=== PATIENT | female | born 1955 | race Caucasian/White ===

== ENCOUNTER 2023-09-16 08:41 | Outpatient (RCR) | payer OTHER, SELFPAY | END 2023-09-16 23:59 | disposition home or self-care (01) | LOC: CRHB 08:41 | PROVIDERS: ATTENDING PHYSICIAN Internal Medicine Cardiovascular Disease | DX: I25.10 Atherosclerotic heart disease of native coronary artery without angina pectoris (principal); Z95.5 Presence of coronary angioplasty implant and graft; I25.2 Old myocardial infarction | CPT/HCPCS: G0422; G0423 ==

== ENCOUNTER → 2023-10-09 10:01 | Outpatient (REF) | payer OTHER, SELFPAY ==
[2023-10-09 11:06] LABS: ALT (SGPT) 49 U/L (0-35); AST (SGOT) 49 U/L (14-36); HDL Cholesterol 63 mg/dl; LDL Cholesterol, Calculated 62 mg/dl; Total Cholesterol 141 mg/dl (50-199); Triglyceride 82 mg/dl (10-149); Very Low Density Lipoprotein 16 mg/dl (0-30)
== END ==
LOC: REG 10:01
PROVIDERS: ATTENDING PHYSICIAN Nurse Practitioner; FAMILY PHYSICIAN Internal Medicine Cardiovascular Disease
DX: E78.5 Hyperlipidemia, unspecified (principal)
CPT/HCPCS: 36415; 80061; 84450; 84460

== ENCOUNTER 2023-10-12 08:58 | Outpatient (RCR) | payer OTHER, SELFPAY | END 2023-10-12 23:59 | disposition home or self-care (01) | LOC: CRHB 08:58 | PROVIDERS: ATTENDING PHYSICIAN Internal Medicine Cardiovascular Disease | DX: I25.10 Atherosclerotic heart disease of native coronary artery without angina pectoris (principal); Z95.5 Presence of coronary angioplasty implant and graft; I25.2 Old myocardial infarction | CPT/HCPCS: G0422; G0423 ==

== ENCOUNTER → 2024-07-27 13:11 | Outpatient (REF) | payer OTHER, SELFPAY | LOC: WDC 13:11 | PROVIDERS: ATTENDING PHYSICIAN Internal Medicine | DX: Z12.31 Encounter for screening mammogram for malignant neoplasm of breast (principal) | CPT/HCPCS: 77063; 77067 ==